=== PATIENT | male | born 1960 | race Caucasian/White ===

== ENCOUNTER 2023-11-10 21:02 | Inpatient (IN) | payer BC ==
[~2023-11-10] VITALS: Ht 175.2 cm; Wt 64.9 kg
[~2023-11-10 21:02] MED LIST: ASPIR 8181 MG PO; ATORVASTATIN CA40 M1 PO; KEPPRA1000 MG PO; LOPRESSOR25 MG PO; PRAMIPEXOLE D0.25 MG PO; SIMVASTATIN5 MG PO; Sinemet Cr 50/21 TAB PO
[2023-11-10 21:09] VITALS: BP 152/78
[2023-11-10] MEDS ORDERED: MG-AL HYDROXIDE/SIMETICONE 30 ML UDC PO PRN (22:00)
[2023-11-10] MEDS ORDERED: ACETAMINOPHEN 325 MG TAB PO PRN (22:00)
[2023-11-10] MEDS ORDERED: Magnesium Hydroxide 30 ML UDC PO PRN (22:00)
[2023-11-10] MEDS ORDERED: Menthol/Zinc Oxide 4 GM THIN T PRN (22:10)
[2023-11-10] MEDS ORDERED: LORazepam 1 MG TAB PO PRN (22:20)
[2023-11-10] MEDS ORDERED: Ziprasidone Mesylate 20 MG VIAL IM PRN (22:25)
[2023-11-10] MEDS ORDERED: Water, Sterile 10 ML VIAL IM PRN (22:25)
[2023-11-10] MEDS ORDERED: TOPROL XL50 M1 PO (22:32)
[2023-11-10] MEDS ORDERED: LASIX40 MG PO (22:33)
[2023-11-10] MEDS ORDERED: SEROQUEL25 MG PO (22:35)
[2023-11-10] MEDS ORDERED: NAMENDA-5 PO (22:38)
[2023-11-10] MEDS ORDERED: DEPAKOTE ER500 MG PO (22:40)
[2023-11-11 08:09] VITALS: BP 113/64
[2023-11-11] MEDS ORDERED: ATORVASTATIN CALCIUM 40 MG TABLET PO SCH (09:00)
[2023-11-11] MEDS ORDERED: RISPERIDONE 0.5 MG TAB PO SCH (09:00)
[2023-11-11] MEDS ORDERED: METOPROLOL SUCCINATE XR 50 MG TAB PO SCH (09:00)
[2023-11-11] MEDS ORDERED: Memantine Hydrochloride 5 MG TAB PO SCH (09:00)
[2023-11-11] MEDS ORDERED: Rivastigmine Tartrate 4.6 MG/24 HR PATCH T SCH (09:00)
[2023-11-11] MEDS ORDERED: FUROSEMIDE 40 MG TAB PO SCH (10:00)
[2023-11-11] MEDS ORDERED: ASPIRIN ENTERIC COATED 81 MG TAB PO SCH (10:00)
[2023-11-11 13:05] LABS: BASO % 0.3 % (0.0-1.0); EOS # 0.1 10*3/uL (0.0-0.4); EOS % 1.1 % (1.0-4.0); HEMATOCRIT 47.4 % (42.0-52.0); LYMPH # 1.8 10*3/uL (1.3-4.4); LYMPH % 16.1 % (27.0-41.0); MEAN CELL VOLUME 96.7 fl (80.0-94.0); MEAN CORPUSCULAR HGB 32.7 pg (27.0-31.0); MEAN CORPUSCULAR HGB CONC 33.8 g/dl (33.0-37.0); MEAN PLATELET VOLUME 10.6 fl (9.6-12.3); MONO # 0.9 10*3/uL (0.1-1.0); MONO % 8.2 % (3.0-9.0); NEUT # 8.3 10*3/uL (2.3-7.9); PLATELET COUNT AUTOMATED 208 10*3/uL (130-400); RED CELL DISTRI WIDTH 12.4 % (0-14.5); WHITE BLOOD COUNT 11.1 10*3/uL (4.8-10.8)
[2023-11-11 13:30] LABS: ALKALINE PHOSPHATASE 78 U/L (46-116); BUN 10 mg/dl (9-23); CHLORIDE 105 mmol/L (98-107); CHOLESTEROL 129 mg/dL (<200); LDL CHOLESTEROL 64 mg/dL (9-159); POTASSIUM 3.8 mmol/L (3.4-5.1); SGPT/ALT 18 U/L (5-49); TOTAL PROTEIN 7.4 gm/dL (6.0-8.0); TRIGLYCERIDES 62 mg/dl (<150)
[2023-11-11 13:50] LABS: VITAMIN D, 25-HYDROXY 11.7 ng/mL (30-100)
[2023-11-11] MEDS ORDERED: DOCUSATE CALCIUM 240 MG CAP PO SCH (13:50)
[2023-11-11] MEDS ORDERED: ERGOCALCIFEROL 50,000 IU CAP (1.25 MG) PO ONE (17:10)
[2023-11-11] MEDS ORDERED: DIVALPROEX ER 500 MG TAB PO SCH (21:00)
[2023-11-12 08:00] VITALS: BP 133/67
[2023-11-12] MEDS ORDERED: DOCUSATE SODIUM 100 MG CAP PO SCH (10:00)
[2023-11-12 16:35] LABS: BILIRUBIN Negative (Negative); BLOOD 2+ (Negative); CLARITY Clear (Clear); COLOR Yellow (Yellow); GLUCOSE Negative (Negative); KETONE Negative (Negative); LEUKO ESTERASE Negative (Negative); NITRITE Negative (Negative); PH 5.5 (4.5-8.0); SPECIFIC GRAVITY 1.015 (1.001-1.030)
[2023-11-12 16:45] LABS: BACTERIA TRACE; RBC 41-50 rbc/hpf (0-2)
[2023-11-12 16:46] LABS: FINE GRANULAR CAST 0-2; MUCOUS 1+
[2023-11-12] MEDS ORDERED: Ziprasidone Hydrochloride 60 MG CAP PO SCH (17:00)
[2023-11-12 18:47] VITALS: BP 110/66
[2023-11-13] MEDS ORDERED: LORazepam 1 MG TAB PO SCH (09:00)
[2023-11-13 13:00] VITALS: BP 101/79
[2023-11-13] MEDS ORDERED: Ziprasidone Hydrochloride 40 MG CAP PO SCH (17:00)
[2023-11-13 20:00] VITALS: BP 101/79
[2023-11-14 08:00] VITALS: BP 132/81
[2023-11-14] MEDS ORDERED: hydrOXYzine hydrochloride 50 MG/ML VIAL IM ONE (09:40)
[2023-11-14 20:00] VITALS: BP 100/80
[2023-11-15 08:12] VITALS: BP 128/85
[2023-11-15] MEDS ORDERED: Rivastigmine Tartrate 9.5 MG/24 HR PATCH T SCH (09:00)
[2023-11-15 20:00] VITALS: BP 131/61
[2023-11-16 07:56] VITALS: BP 128/74
[2023-11-16] MEDS ORDERED: Ziprasidone Hydrochloride 40 MG CAP PO SCH ×2 (09:00→17:00)
[2023-11-16] MEDS ORDERED: RIVASTIGMINE 13.3 MG/24 HR TDM T SCH (09:00)
[2023-11-16 20:00] VITALS: BP 126/80
[2023-11-17 08:00] VITALS: BP 108/67
[2023-11-17 20:00] VITALS: BP 102/82
[2023-11-18 07:55] VITALS: BP 120/67
[2023-11-18] MEDS ORDERED: ERGOCALCIFEROL 50,000 IU CAP (1.25 MG) PO SCH (09:00)
[2023-11-18 20:00] VITALS: BP 127/61
[2023-11-18] MEDS ORDERED: RAMELTEON 8 MG TAB PO SCH (21:00)
[2023-11-19 07:26] VITALS: BP 127/80
[2023-11-19] MEDS ORDERED: RIVASTIGMINE1 EAC2 T (08:54)
[2023-11-19] MEDS ORDERED: ZIPRASIDONE HCL40 MG PO ×2 (08:54)
[2023-11-19] MEDS ORDERED: NAMENDA-5 PO (08:54)
[2023-11-19] MEDS ORDERED: Vitamin D (50,000 UN PO (08:54)
[2023-11-19] MEDS ORDERED: RAMELTEON8 MG PO (08:54)
[2023-11-19] MEDS ORDERED: [UNRECOGNIZED DRUG - CODE] PO (10:55)
[2023-11-19 20:00] VITALS: BP 113/62
[2023-11-20 08:00] VITALS: BP 143/76
[2023-11-20] MEDS ORDERED: Ziprasidone Hydrochloride 40 MG CAP PO ONE (17:50)
== END 2023-11-20 18:38 | disposition home or self-care (01) | DRG 883 ==
LOC: 3N 21:02
PROVIDERS: ADMIT Psychiatry & Neurology Psychiatry; ATTEND Psychiatry & Neurology Psychiatry
PROC: GZHZZZZ Group Psychotherapy (ICD-10-PCS; principal; 2023-11-14)
PROC: GZ51ZZZ Individual Psychotherapy, Behavioral (ICD-10-PCS; 2023-11-14)
DX: F63.81 Intermittent explosive disorder (principal); R47.01 Aphasia; F23 Brief psychotic disorder; F33.1 Major depressive disorder, recurrent, moderate; G40.909 Epilepsy, unspecified, not intractable, without status epilepticus; G25.81 Restless legs syndrome; F02.80 Dementia in other diseases classified elsewhere, unspecified severity, without behavioral disturbance, psychotic disturbance, mood disturbance, and anxiety; G30.9 Alzheimer's disease, unspecified; R73.9 Hyperglycemia, unspecified; I10 Essential (primary) hypertension; I25.10 Atherosclerotic heart disease of native coronary artery without angina pectoris; Z83.3 Family history of diabetes mellitus; Z82.49 Family history of ischemic heart disease and other diseases of the circulatory system